=== PATIENT | female | born 1950 | race Caucasian/White ===

== ENCOUNTER 2016-12-11 22:26 | Emergency (ER) | payer MEDICARE, BC ==
[2016-12-11] MEDS ORDERED: Ondansetron 4 MG Tab.DIS PO ONE (22:49)
[2016-12-11] MEDS ORDERED: Pantoprazole 40 MG Tab.CR PO ONE (22:49)
[2016-12-11 22:57] LABS: CHLORIDE,CL 102 mmol/L (98-107); SODIUM,NA 140 mmol/L (136-145)
--- NOTE | 2016-12-11 23:03 | EDM.PDOC ---
ED HPI GENERAL MEDICAL PROBLEM - General Chief Complaint: Gastrointestinal Problem Stated Complaint: vomiting blood Time Seen by Provider: 12/11/16 22:28 Source of Information: Reports: Patient History Limitations: Reports: No Limitations - History of Present Illness INITIAL COMMENTS - FREE TEXT/NARRATIVE: Patient attempting to do colonoscopy prep throughout today (scheduled for procedure tomorrow around 10:30am) and became nauseated after drinking her last glass of prep tonight. Had three episodes of emesis. Noted blood in last emesis. Bright red by description, mixed in with the water and prep she had been drinking. Has felt fine otherwise today. No feelings of illness other than discomfort of having to do the prep for the procedure. Denies fevers. No history of vomiting blood in past. Has history of hiatal hernia, noted during upper GI last year. Having colonoscopy tomorrow due to heme+ stool tests. Denies dark/tarry stools. Today noted multiple brownish watery stools due to the colonoscopy prep. o other complaints. Abdominal Pain Score (Numeric/FACES): 2 - Related Data Allergies Allergy/AdvReac Type Severity Reaction Status Date / Time Tetanus Vaccines and Toxoid Allergy Fever Verified 12/11/16 22:35 [Tetanus Vaccines & Toxoid] Home Meds: Home Meds Aspirin [Children's Aspirin] 81 mg PO DAILY 03/14/14 [History] Lisinopril/Hydrochlorothiazide [Lisinopril-Hctz 10-12.5 mg Tab] 1 tab PO DAILY 03/14/14 [History] Metoprolol Succinate 50 mg PO DAILY 03/14/14 [History] Omeprazole 20 mg PO DAILY 03/14/14 [History] Simvastatin [Zocor] 20 mg PO BEDTIME 11/23/15 [History] predniSONE [Prednisone] 1 mg PO DAILY 11/23/15 [History] Ciprofloxacin HCl [Cipro] 250 mg PO BID 12/11/16 [History] Past Medical History HEENT History: Reports: None Cardiovascular History: Reports: High Cholesterol, Hypertension Gastrointestinal History: Reports: Cholelithiasis, Chronic Constipation, GERD Other OB/BYN History: Hx. of excessive vaginal bleeding Other Musculoskeletal History: dx. with polymyalgia rheumatica - Infectious Disease History Infectious Disease History: Reports: None - Past Surgical History GI Surgical History: Reports: Cholecystectomy, Colonoscopy Female Surgical History: Reports: Hysterectomy Other Musculoskeletal Surgeries/Procedures:: Partial Knee Replacement Social & Family History - Tobacco Use Smoking Status *Q: Never Smoker Second Hand Smoke Exposure: No - Alcohol Use Days Per Week of Alcohol Use: 1 (No previous DWI, etc.) Number of Drinks Per Day: 2 (Usually wine coolers) Total Drinks Per Week: 2 - Recreational Drug Use Recreational Drug Use: No Drug Use in Last 12 Months: No Recreational Drug Last Use: 3-4 cups of coffee per day, one can of soda per week , very occasional tea - Living Situation & Occupation Living situation: Reports: Occupation: Retired ED ROS GENERAL - Review of Systems Review Of Systems: See Below Constitutional: Reports: No Symptoms. Denies: Fever, Weakness HEENT: Reports: No Symptoms. Denies: Nosebleed, Throat Pain Respiratory: Reports: No Symptoms. Denies: Shortness of Breath, Cough, Hemoptysis Cardiovascular: Reports: No Symptoms. Denies: Chest Pain GI/Abdominal: Reports: Abdominal Pain (has generalized mild discomfort since starting prep using Miralax today), Diarrhea (watery stools since starting prep) , Hematemesis, Nausea, Vomiting. Denies: Black Stool, Bloody Stool, Distension , Hematochezia : Reports: Other (Taking Cipro for UTI). Denies: Flank Pain Musculoskeletal: Reports: No Symptoms Skin: Reports: No Symptoms Neurological: Reports: No Symptoms Psychiatric: Reports: No Symptoms Hematologic/Lymphatic: Reports: No Symptoms ED EXAM, GENERAL - Physical Exam Exam: See Below Exam Limited By: No Limitations General Appearance: Alert, WD/WN, No Apparent Distress Eye Exam: Bilateral Eye: EOMI, PERRL Ears: Normal External Exam, Normal Canal Nose: Normal Inspection. No: No Blood Throat/Mouth: Normal Inspection, Normal Lips, Normal Teeth, Normal Gums, Normal Oropharynx, Normal Voice, No Airway Compromise Head: Atraumatic, Normocephalic Neck: Normal Inspection, Supple, Non-Tender Respiratory/Chest: No Respiratory Distress, Lungs Clear, Normal Breath Sounds, No Accessory Muscle Use, Chest Non-Tender Cardiovascular: Normal Peripheral Pulses, Regular Rate, Rhythm, No Murmur Peripheral Pulses: 2+: Radial (L), Radial (R) GI/Abdominal: Normal Bowel Sounds, Soft, No Distention, Tender (mild diffuse discomfort all quadrants with palpation, also in epigastric area). No: Guarding , Rigid, Rebound (Female) Exam: Deferred Rectal (Female) Exam: Deferred Back Exam: No: CVA Tenderness (L), CVA Tenderness (R) Extremities: Non-Tender, Normal Capillary Refill Neurological: Alert, Oriented, Normal Cognition, Normal Gait Psychiatric: Normal Affect, Normal Mood Skin Exam: Warm, Intact, Normal Color Course - Vital Signs Last Recorded V/S: Last Vital Signs Temp 36.7 C 12/11/16 22:33 Pulse 81 12/11/16 22:33 Resp 18 12/11/16 22:33 BP 138/90 12/11/16 22:33 Pulse Ox 100 12/11/16 22:33 - Orders/Labs/Meds Labs: Laboratory Tests 12/11/16 12/11/16 Range/Units 22:40 22:40 WBC 7.5 (4.0-10.2) K/uL RBC 5.03 (3.77-5.09) M/uL Hgb 14.9 (11.7-15.5) g/dL Hct 43.2 (34.0-46.0) % MCV 85.9 (84.0-98.0) fL MCH 29.6 (28.2-33.3) pg MCHC 34.5 (31.7-36.0) g/dL RDW 13.7 (11.2-14.1) % Plt Count 235 (150-350) K/uL Neut % (Auto) 70.3 (45.0-80.0) % Lymph % (Auto) 20.7 (10.0-50.0) % [place] % (Auto) 7.8 (2.0-14.0) % Eos % (Auto) 0.8 (0.0-5.0) % Baso % (Auto) 0.4 (0.0-2.0) % Neut # (Auto) 5.26 (1.40-7.00) K/uL Lymph # (Auto) 1.55 (0.50-3.50) K/uL [place] # (Auto) 0.58 (0.00-1.00) K/uL Eos # (Auto) 0.06 (0.00-0.50) K/uL Baso # (Auto) 0.03 (0.00-0.20) K/uL Sodium 140 (136-145) mmol/L Potassium 3.6 (3.5-5.1) mmol/L Chloride 102 (98-107) mmol/L Carbon Dioxide 27.3 (21.0-32.0) mmol/L BUN 11 (7-18) mg/dL Creatinine 0.80 (0.51-1.17) mg/dL Est Cr Clr Drug Dosing TNP Estimated GFR (MDRD) > 60 mL/min Glucose 106 (74-106) mg/dL Calcium 9.1 (8.5-10.1) mg/dL Meds: Medications Discontinued Medications Generic Name Dose Route Start Last Admin Trade Name Freq PRN Reason Stop Dose Admin Ondansetron HCl 4 mg 12/11/16 22:49 12/11/16 22:54 Zofran Odt PO 12/11/16 22:50 4 mg ONETIME ONE Administration Pantoprazole Sodium 40 mg 12/11/16 22:49 12/11/16 23:06 Protonix PO 12/11/16 22:50 40 mg ONETIME ONE Administration - Re-Assessments/Exams Free Text/Narrative Re-Assessment/Exam: 12/11/16 23:15 No noted emesis since patient's arrival. Vital signs stable. Cbc and Chem normal. Exam overall unremarkable. Patient does have mild abdominal discomfort but this would be expected given the Miralax prep she has been drinking throughout the day. Present plan is to monitor the patient for several hours to see if she has any additional episodes of emesis. Zofran and Protonix given (patient did not take her medicines today). If things appear to have normalized she will be able to go home with planned return in the morning for scheduled colonoscopy. Free Text/Narrative Re-Assessment/Exam: 12/12/16 03:30 Patient had no further emesis while being observed in ER. She did have another brownish stool that was watery. Cannot rule out presence of upper GI bleed however noted blood may have been irritation from vomiting from prep. She is to watch for further episodes. She will undergo colonoscopy later this morning because of the recent Heme+ stools. At that time she is to discuss with the possibility of needing upper endoscopy. She is to also discuss this with her primary provider. Patient is in agreement with plan. Departure - Departure Time of Disposition: 01:00 Disposition: Home, Self-Care 01 Condition: Good Clinical Impression: Vomiting blood Qualifiers: Nausea presence: with nausea Qualified Code(s): K92.0 - Hematemesis - Discharge Information Referrals: Mona Mcdonald, VICE CHAIR [Primary Care Provider] - Forms: ED Department Discharge Additional Instructions: Stay NPO overnight except for small sips of water. Return to the hospital in the morning for your scheduled colonoscopy. If additional episodes of vomiting blood are noted, you will need an upper endoscopy in addition to tomorrow's procedure. Return to the ER if any large amounts of bleeding are noted.
[2016-12-12 05:33] VITALS: BP 136/63
== END 2016-12-12 01:03 | disposition home or self-care (01) ==
LOC: LL.ED 22:26
DX: K92.0 Hematemesis (principal); I10 Essential (primary) hypertension; E78.00 Pure hypercholesterolemia, unspecified; K21.9 Gastro-esophageal reflux disease without esophagitis; Z90.49 Acquired absence of other specified parts of digestive tract; Z90.710 Acquired absence of both cervix and uterus; Z96.659 Presence of unspecified artificial knee joint; Z79.82 Long term (current) use of aspirin; Z79.899 Other long term (current) drug therapy; Z88.7 Allergy status to serum and vaccine
CPT/HCPCS: 36415; 80048; 85025; 99285; A9270; 99283

== ENCOUNTER → 2016-12-12 | Day surgery (SDC) | payer MEDICARE, BC ==
[~2016-12-12] MED LIST: Lactated Ringers 1,000 ML IV SCH; Lidocaine 2% 5 ML SDV ONE; Midazolam 1 MG/ML 2 ML SDV ONE; Propofol 200 MG/20 ML SDV ONE; Sodium Chloride 0.9% 10 ML Syringe FLUSH PRN; fentaNYL 100 MCG/2 ML SDV ONE
--- NOTE | 2016-12-12 11:02 | PCM.HP ---
H&P History of Present Illness - General Date of Service: 12/12/16 Admit Problem/Dx: Admission Diagnosis/Problem Admission Diagnosis/Problem Colonoscopy Source of Information: Patient, Old Records History Limitations: Reports: No Limitations - History of Present Illness Initial Comments - Free Text/Narative: Here for colonoscopy for Heme pos stool. Also has GERD and had hematemesis last pm so will do EGD - Related Data Allergies/Adverse Reactions: Allergies Allergy/AdvReac Type Severity Reaction Status Date / Time Tetanus Vaccines and Toxoid Allergy Fever Verified 12/12/16 10:51 [Tetanus Vaccines & Toxoid] Home Medications: Home Meds Aspirin [Children's Aspirin] 81 mg PO DAILY 03/14/14 [History] Lisinopril/Hydrochlorothiazide [Lisinopril-Hctz 10-12.5 mg Tab] 1 tab PO DAILY 03/14/14 [History] Metoprolol Succinate 50 mg PO DAILY 03/14/14 [History] Omeprazole 20 mg PO DAILY 03/14/14 [History] Simvastatin [Zocor] 20 mg PO BEDTIME 11/23/15 [History] predniSONE [Prednisone] 1 mg PO DAILY 11/23/15 [History] Ciprofloxacin HCl [Cipro] 250 mg PO BID 12/11/16 [History] Past Medical History HEENT History: Reports: None Cardiovascular History: Reports: High Cholesterol, Hypertension Gastrointestinal History: Reports: Cholelithiasis, Chronic Constipation, GERD Genitourinary History: Reports: Urinary Incontinence, Other (See Below) Other Genitourinary History: Vulvar candidiasis Other OB/BYN History: Hx. of excessive vaginal bleeding Other Musculoskeletal History: dx. with polymyalgia rheumatica - Infectious Disease History Infectious Disease History: Reports: None - Past Surgical History GI Surgical History: Reports: Cholecystectomy, Colonoscopy Female Surgical History: Reports: Hysterectomy Other Musculoskeletal Surgeries/Procedures:: Partial Knee Replacement Social & Family History - Tobacco Use Smoking Status *Q: Never Smoker Second Hand Smoke Exposure: No - Alcohol Use Days Per Week of Alcohol Use: 1 (No previous DWI, etc.) Number of Drinks Per Day: 2 (Usually wine coolers) Total Drinks Per Week: 2 - Recreational Drug Use Recreational Drug Use: No Drug Use in Last 12 Months: No Recreational Drug Last Use: 3-4 cups of coffee per day, one can of soda per week , very occasional tea - Living Situation & Occupation Living situation: Reports: Occupation: Retired H&P Review of Systems - Review of Systems: Review Of Systems: ROS reveals no pertinent complaints other than HPI. Exam - Exam Exam: See Below - Vital Signs Vital Signs: Last Vital Signs Temp 97.7 F 12/12/16 10:47 Pulse 74 12/12/16 10:47 Resp 20 12/12/16 10:47 BP 129/81 12/12/16 10:47 Pulse Ox 97 12/12/16 10:47 Weight: 79.379 kg - Exam Lungs: Clear to Auscultation, Normal Respiratory Effort Cardiovascular: Regular Rate, Regular Rhythm Abdomen: Soft *Q Meaningful Use (ADM) - VTE *Q VTE Criteria *Q: - Stroke *Q Stroke Criteria *Q: - AMI *Q AMI Criteria *Q: Problem List Initiated/Reviewed/Updated: Yes Orders Last 24hrs: Active Orders 24 hr Category Date Time Status Patient Status [ADT] Routine ADT 12/12/16 10:30 Active Peripheral IV Care [RC] . DIRECTED Care 12/12/16 10:30 Active Verify Patient Consent Obtain [RC] ASDIRECTED Care 12/12/16 10:30 Active Lactated Ringers [Ringers, Lactated] 1,000 ml Med 12/12/16 10:30 Active IV ASDIRECTED Sodium Chloride 0.9% [Saline Flush] Med 12/12/16 10:30 Active 10 ml FLUSH ASDIRECTED PRN Peripheral IV Insertion Adult [OM.PC] Routine Oth 12/12/16 10:30 Ordered Medication Orders Lactated Ringer's (Ringers, Lactated) 1,000 mls @ 125 mls/hr IV ASDIRECTED BILL Sodium Chloride (Saline Flush) 10 ml FLUSH ASDIRECTED PRN PRN Reason: Keep Vein Open Assessment/Plan Comment:: Heme positive stool GERD Hematemesis Will proceed with EGD and Colonoscopy, consent obtained
--- NOTE | 2016-12-12 11:42 | PCM.OPNOTE ---
- General Post-Op/Procedure Note Date of Surgery/Procedure: 12/12/16 Operative Procedure(s): EGD with Bx. Colonoscopy Findings: Hiatal Hernia with Esophagitis Diverticulosis Anal Fissure Pre Op Diagnosis: Heme pos stool. Hematemesis Post-Op Diagnosis: Same Anesthesia Technique: MAC Primary Surgeon: Jarrod Calderón Anesthesia Provider: Madiha Pan Pathology: Distal Esohagus EBL in mLs: 0 Complications: None Condition: Good
--- NOTE | 2016-12-12 14:35 | OR ---
Date of Procedure: 12/12/2016 PREOPERATIVE DIAGNOSES: 1. Hemoccult-positive stool. 2. Recent hematemesis. 3. Gastroesophageal reflux disease. POSTOPERATIVE DIAGNOSES: 1. Hiatal hernia with esophagitis. 2. Diverticulosis. 3. Anal fissure. PROCEDURES: 1. Colonoscopy. 2. EGD with biopsy. ANESTHESIA: IV sedation. DESCRIPTION OF PROCEDURE: The patient was brought to the procedure room, where she was placed on the left side and IV sedation administered. 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 There was minimal blood on the glove. No rectal masses were noted. Colonoscope was inserted and advanced to the level of the cecum with some difficulty, getting through a tortuous sigmoid colon. With pressure on the abdomen, I was able to advance to the cecum, which was confirmed by identifying the appendiceal lumen and ileocecal valve. Upon withdrawing the scope, the ascending and transverse colon were normal. The descending colon had a few diverticula. The sigmoid colon was tortuous with multiple diverticula. The rectum was normal and retroflexion was normal. Air was removed and the scope withdrawn. The patient tolerated this portion of the procedure well. Next, upper endoscopy was performed after oral bite block was placed. Upper endoscope was advanced into the esophagus under direct vision without difficulty. Vocal cords were viewed and were normal. The scope was advanced to the 3rd portion of the duodenum. The duodenum and pylorus were normal. The antrum and body of the stomach were normal. Retroflexion reveals a small hiatal hernia. Squamocolumnar junction was irregular with a few columns of erosions extending cephalad. I did take two biopsies from here. I did not see any source of bleeding. Air was removed and the scope withdrawn through the remaining esophagus, which appears normal. The patient tolerated the procedures well and returned to recovery in stable condition. However, remain on her anti-acid medication and notify her of her biopsies when they return. She should consider routine colon screening again in 10 years. MARC CHAPIN MD /[id number]
[2016-12-12 14:44] VITALS: BP 119/72
== END | disposition home or self-care (01) ==
LOC: LL.SDS 10:25
PROVIDERS: ATTEND Surgery
DX: K22.10 Ulcer of esophagus without bleeding (principal); K44.9 Diaphragmatic hernia without obstruction or gangrene; K57.30 Diverticulosis of large intestine without perforation or abscess without bleeding; K60.2 Anal fissure, unspecified; K21.9 Gastro-esophageal reflux disease without esophagitis; I10 Essential (primary) hypertension; E78.2 Mixed hyperlipidemia; Z90.710 Acquired absence of both cervix and uterus; Z98.890 Other specified postprocedural states; Z88.7 Allergy status to serum and vaccine; Z79.82 Long term (current) use of aspirin; Z79.899 Other long term (current) drug therapy
CPT/HCPCS: 43239; 45378; 88305; J2250; J2704; J3010; J7050; J7120; 00740

== ENCOUNTER 2023-04-28 17:12 | Emergency (ER) | payer OTHER, MEDICARE, BC ==
[2023-04-28 17:39] LABS: BASOPHILS ABSOLUTE AUTO 0.03 K/uL (0.00-0.20); BASOPHILS PERCENT AUTO 0.5 % (0.0-2.0); EOSINOPHILS ABSOLUTE AUTO 0.03 K/uL (0.00-0.50); EOSINOPHILS PERCENT AUTO 0.5 % (0.0-5.0); HEMATOCRIT 40.5 % (34.0-46.0); HEMOGLOBIN 13.8 g/dL (11.7-15.5); LYMPHOCYTES ABSOLUTE AUTO 1.37 K/uL (0.50-3.50); LYMPHOCYTES PERCENT AUTO 24.5 % (10.0-50.0); MEAN CORPUSCULAR HEMOGLOBIN 31.1 pg (28.2-33.3); MEAN CORPUSCULAR HGB CONC 34.1 g/dL (31.7-36.0); MEAN CORPUSCULAR VOLUME 91.2 fL (84.0-98.0); MONOCYTES ABSOLUTE AUTO 0.25 K/uL (0.00-1.00); MONOCYTES PERCENT AUTO 4.5 % (2.0-14.0); NEUTROPHILS ABSOLUTE AUTO 3.91 K/uL (1.40-7.00); PLATELET COUNT,PLT 220 K/uL (150-350); RED BLOOD CELL COUNT 4.44 M/uL (3.77-5.09); RED CELL DISTRIBUTION WIDTH 14.9 % (11.2-14.1); WHITE BLOOD CELL COUNT,WBC 5.6 K/uL (4.0-10.2)
[2023-04-28] MEDS ORDERED: Morphine 2 MG/ML SYRINGE IVPUSH ONE (17:45)
[2023-04-28] MEDS ORDERED: Lactated Ringers 1,000 ML IV ONE (17:45)
[2023-04-28] MEDS ORDERED: Naloxone 0.4 MG/ML SDV IVPUSH PRN (17:45)
[2023-04-28] MEDS ORDERED: Ondansetron 4 MG/2 ML SDV IVPUSH ONE (17:46)
[2023-04-28 17:53] LABS: ALANINE AMINOTRANSFERASE,ALT 88 U/L (12-78); ALBUMIN 3.6 g/dL (3.4-5.0); ALKALINE PHOSPHATASE 75 IU/L (46-116); AMYLASE 48 U/L (25-115); ANION GAP 12.6 meq/L (7-15); ASPARTATE AMNIOTRANSFERASE,AST 92 U/L (15-37); BILIRUBIN TOTAL 0.5 mg/dL (0.2-1.0); BLOOD UREA NITROGEN,BUN 16 mg/dL (7-18); CALCIUM 9.4 mg/dL (8.5-10.1); CARBON DIOXIDE,CO2 26.4 mmol/L (21.0-32.0); CHLORIDE,CL 105 mmol/L (98-107); CREATININE 1.06 mg/dL (0.51-1.17); GLUCOSE RANDOM 143 mg/dL (70-99); LIPASE 73 U/L (16-77); MAGNESIUM 1.9 mg/dL (1.8-2.4); POTASSIUM,K 3.8 mmol/L (3.5-5.1); PROTEIN TOTAL,TP 6.8 g/dL (6.4-8.2); SODIUM,NA 144 mmol/L (136-145)
[2023-04-28] MEDS: Sodium Chloride 0.9% 10 ML Syringe FLUSH PRN ×3 (17:53→18:00)
[2023-04-28 17:54] LABS: ESTIMATED GFR 56 mL/min (>=60)
== END 2023-04-28 19:23 | disposition home or self-care (01) ==
LOC: LL.ED 17:12
DX: S09.90XA Unspecified injury of head, initial encounter (principal); S80.12XA Contusion of left lower leg, initial encounter; S20.211A Contusion of right front wall of thorax, initial encounter; S70.311A Abrasion, right thigh, initial encounter; S80.211A Abrasion, right knee, initial encounter; S80.212A Abrasion, left knee, initial encounter; S30.811A Abrasion of abdominal wall, initial encounter; S00.81XA Abrasion of other part of head, initial encounter; I10 Essential (primary) hypertension; M19.90 Unspecified osteoarthritis, unspecified site; E78.5 Hyperlipidemia, unspecified; K21.9 Gastro-esophageal reflux disease without esophagitis; Z79.899 Other long term (current) drug therapy; Z79.82 Long term (current) use of aspirin; V03.99XA Pedestrian with other conveyance injured in collision with car, pick-up truck or van, unspecified whether traffic or nontraffic accident, initial encounter; Y92.410 Unspecified street and highway as the place of occurrence of the external cause
CPT/HCPCS: 36415; 70450; 71045; 72170; 80053; 82150; 83605; 83690; 83735; 84484; 85025; 85610; 93005; 96374; 96375; 99285-25; J2270; J2405; J3490; J7120